=== PATIENT | female | born 2000 | race Caucasian/White ===

== ENCOUNTER 2018-01-03 03:15 | Emergency (ER) | payer MEDICAID ==
[~2018-01-03] VITALS: Ht 167.6 cm; Wt 56.7 kg
[2018-01-03 03:23] VITALS: BP 134/90
--- NOTE | 2018-01-03 03:29 | NUR ---
Patient ambulated to chair A with family. RN evaluating patient.
--- NOTE | 2018-01-03 03:30 | NUR ---
PATIENT IS A 17 Y/O FEMALE WHO PRESENTS TO THE ED C/O RIGHT EAR PAIN. PT STATES THAT HER RIGHT EAR HAS BEEN BOTHERING HER AND THERE IS DRAINAGE. PT REPORTS 10/10 SHARP RIGHT EAR PAIN THAT DOES NOT RADIATE. PT DENIES CP, SOB, N/V/D. PT AAOX4, RR EVEN/UNLABORED. PT REPOSITIONED FOR COMFORT, PT SITTING IN CHAIR. ER MD DR. ARIZMENDI NOTIFIED. WILL CONTINUE TO MONITOR.
[2018-01-03] MEDS ORDERED: IBUPROFEN 600 MG TAB PO ONE (03:35)
[2018-01-03] MEDS ORDERED: ACETAMINOPHEN EXTRA STRENGTH 500 MG TAB PO ONE (03:35)
--- NOTE | 2018-01-03 03:35 | NUR ---
PATIENT BEING EVALUATED BY DR. ARIZMENDI.
[2018-01-03 04:00] VITALS: BP 129/83
--- NOTE | 2018-01-03 04:00 | NUR ---
Patient discharged with v/s stable. Written and verbal after care instructions given and explained. Patient alert, oriented and verbalized understanding of instructions. Ambulatory with steady gait. All questions addressed prior to discharge. ID band removed. Patient advised to follow up with PMD. Rx of HYDROCORTISONE/ACETIC ACID AND CIPROFLOXACIN OTIC given. Patient educated on indication of medication including possible reaction and side effects. Opportunity to ask questions provided and answered.
== END 2018-01-03 04:00 | disposition home or self-care (01) ==
LOC: MED 03:15
DX: H60.91 Unspecified otitis externa, right ear (principal)
CPT/HCPCS: 99283